=== PATIENT | male | born 1940 | race Caucasian/White ===

== ENCOUNTER 2018-03-16 07:16 | Outpatient (CLI) | payer OTHER | END 2018-03-16 07:20 | disposition home or self-care (01) | LOC: LAB 07:16 | DX: E11.69 Type 2 diabetes mellitus with other specified complication (principal); D50.8 Other iron deficiency anemias; N39.0 Urinary tract infection, site not specified; N40.1 Benign prostatic hyperplasia with lower urinary tract symptoms; Z12.11 Encounter for screening for malignant neoplasm of colon; R78.9 Finding of unspecified substance, not normally found in blood ==

== ENCOUNTER 2018-03-17 06:59 | Outpatient (CLI) | payer OTHER | END 2018-03-17 07:04 | disposition home or self-care (01) | LOC: LAB 06:59 | DX: E11.69 Type 2 diabetes mellitus with other specified complication (principal); D50.8 Other iron deficiency anemias; N39.0 Urinary tract infection, site not specified; N40.1 Benign prostatic hyperplasia with lower urinary tract symptoms; Z12.11 Encounter for screening for malignant neoplasm of colon; R78.89 Finding of other specified substances, not normally found in blood ==

== ENCOUNTER 2018-08-24 07:12 | Outpatient (CLI) | payer OTHER | END 2018-08-24 07:17 | disposition home or self-care (01) | LOC: LAB 07:12 | DX: E78.00 Pure hypercholesterolemia, unspecified (principal); E78.2 Mixed hyperlipidemia; E87.8 Other disorders of electrolyte and fluid balance, not elsewhere classified; E11.69 Type 2 diabetes mellitus with other specified complication ==

== ENCOUNTER 2018-11-04 08:06 | Outpatient (CLI) | payer OTHER | END 2018-11-04 08:10 | disposition home or self-care (01) | LOC: LAB 08:06 | DX: N40.0 Benign prostatic hyperplasia without lower urinary tract symptoms (principal) ==

== ENCOUNTER 2019-01-18 06:54 | Outpatient (CLI) | payer OTHER | END 2019-01-18 07:11 | disposition home or self-care (01) | LOC: LAB 06:54 | DX: E11.69 Type 2 diabetes mellitus with other specified complication (principal); E78.00 Pure hypercholesterolemia, unspecified; E78.2 Mixed hyperlipidemia; E87.8 Other disorders of electrolyte and fluid balance, not elsewhere classified; R74.0 Nonspecific elevation of levels of transaminase and lactic acid dehydrogenase [LDH]; D50.8 Other iron deficiency anemias; Z83.49 Family history of other endocrine, nutritional and metabolic diseases; N39.0 Urinary tract infection, site not specified; R97.8 Other abnormal tumor markers; E55.9 Vitamin D deficiency, unspecified; N40.1 Benign prostatic hyperplasia with lower urinary tract symptoms; R07.89 Other chest pain ==

== ENCOUNTER 2019-06-02 07:38 | Outpatient (CLI) | payer OTHER | END 2019-06-02 07:43 | disposition home or self-care (01) | LOC: LAB 07:38 | DX: E78.2 Mixed hyperlipidemia (principal); E87.8 Other disorders of electrolyte and fluid balance, not elsewhere classified; E78.00 Pure hypercholesterolemia, unspecified; B74 Filariasis ==

== ENCOUNTER → 2020-04-24 06:36 | Outpatient (CLI) | payer OTHER | END | disposition home or self-care (01) | LOC: LAB 06:36 | PROVIDERS: ATTEND Internal Medicine | DX: N40.1 Benign prostatic hyperplasia with lower urinary tract symptoms (principal); E11.69 Type 2 diabetes mellitus with other specified complication; E78.00 Pure hypercholesterolemia, unspecified; E78.2 Mixed hyperlipidemia; R74.0 Nonspecific elevation of levels of transaminase and lactic acid dehydrogenase [LDH]; E87.8 Other disorders of electrolyte and fluid balance, not elsewhere classified; D50.8 Other iron deficiency anemias; N39.0 Urinary tract infection, site not specified; E55.9 Vitamin D deficiency, unspecified; Z83.49 Family history of other endocrine, nutritional and metabolic diseases; R97.8 Other abnormal tumor markers; Z12.11 Encounter for screening for malignant neoplasm of colon ==

== ENCOUNTER 2020-04-25 06:21 | Outpatient (CLI) | payer OTHER | END 2020-04-25 07:19 | disposition home or self-care (01) | LOC: LAB 06:21 | PROVIDERS: ATTEND Internal Medicine | DX: E11.69 Type 2 diabetes mellitus with other specified complication (principal); E78.00 Pure hypercholesterolemia, unspecified; E78.2 Mixed hyperlipidemia; R74.0 Nonspecific elevation of levels of transaminase and lactic acid dehydrogenase [LDH]; E87.8 Other disorders of electrolyte and fluid balance, not elsewhere classified; D50.8 Other iron deficiency anemias; N39.0 Urinary tract infection, site not specified; E55.9 Vitamin D deficiency, unspecified; Z83.49 Family history of other endocrine, nutritional and metabolic diseases; R97.8 Other abnormal tumor markers; Z12.11 Encounter for screening for malignant neoplasm of colon; N40.1 Benign prostatic hyperplasia with lower urinary tract symptoms ==

== ENCOUNTER 2021-06-08 07:10 | Outpatient (CLI) | payer OTHER | END 2021-06-08 07:11 | disposition home or self-care (01) | LOC: LAB 07:10 | PROVIDERS: ATTEND Urology | DX: N40.0 Benign prostatic hyperplasia without lower urinary tract symptoms (principal) ==

== ENCOUNTER 2021-07-29 06:34 | Outpatient (CLI) | payer OTHER | END 2021-07-29 06:35 | disposition home or self-care (01) | LOC: LAB 06:34 | PROVIDERS: ATTEND Ophthalmology | DX: I10 Essential (primary) hypertension (principal); E11.39 Type 2 diabetes mellitus with other diabetic ophthalmic complication; I15.8 Other secondary hypertension; D68.32 Hemorrhagic disorder due to extrinsic circulating anticoagulants; D68.8 Other specified coagulation defects ==

== ENCOUNTER 2021-12-05 07:23 | Outpatient (CLI) | payer OTHER | END 2021-12-05 08:48 | disposition home or self-care (01) | LOC: LAB 07:23 | PROVIDERS: ATTEND Internal Medicine | DX: E11.69 Type 2 diabetes mellitus with other specified complication (principal); E78.2 Mixed hyperlipidemia; E87.8 Other disorders of electrolyte and fluid balance, not elsewhere classified; D50.8 Other iron deficiency anemias; N39.0 Urinary tract infection, site not specified; E55.9 Vitamin D deficiency, unspecified; E03.8 Other specified hypothyroidism; R97.8 Other abnormal tumor markers; Z12.11 Encounter for screening for malignant neoplasm of colon; N40.1 Benign prostatic hyperplasia with lower urinary tract symptoms; E78.00 Pure hypercholesterolemia, unspecified; R74.9 Abnormal serum enzyme level, unspecified ==

== ENCOUNTER → 2022-06-15 07:01 | Outpatient (CLI) | payer OTHER | END | disposition home or self-care (01) | LOC: LAB 07:01 | PROVIDERS: ATTEND Internal Medicine | DX: E11.69 Type 2 diabetes mellitus with other specified complication (principal); E11.21 Type 2 diabetes mellitus with diabetic nephropathy; E78.2 Mixed hyperlipidemia; E78.00 Pure hypercholesterolemia, unspecified; E87.8 Other disorders of electrolyte and fluid balance, not elsewhere classified; E03.8 Other specified hypothyroidism ==

== ENCOUNTER 2022-12-15 06:07 | Outpatient (CLI) | payer OTHER | END 2022-12-15 07:18 | disposition home or self-care (01) | LOC: LAB 06:07 | PROVIDERS: ATTEND Internal Medicine | DX: E11.69 Type 2 diabetes mellitus with other specified complication (principal); E78.2 Mixed hyperlipidemia; E78.00 Pure hypercholesterolemia, unspecified; E87.8 Other disorders of electrolyte and fluid balance, not elsewhere classified; R74.02 Elevation of levels of lactic acid dehydrogenase [LDH]; D50.8 Other iron deficiency anemias; N39.0 Urinary tract infection, site not specified; E55.9 Vitamin D deficiency, unspecified; E03.8 Other specified hypothyroidism; R97.8 Other abnormal tumor markers; N40.1 Benign prostatic hyperplasia with lower urinary tract symptoms; Z12.11 Encounter for screening for malignant neoplasm of colon ==

== ENCOUNTER 2023-12-17 07:45 | Outpatient (CLI) | payer OTHER ==
[2023-12-17 09:04] LABS: PH,URINE 6.5 (5.0-8.0); URINE APPEARANCE Clear; URINE BILIRRUBIN Negative (NEGATIVE); URINE BLOOD Trace; URINE COLOR Yellow; URINE GLUCOSE Negative (NEGATIVE); URINE LEUKOCYTE Negative; URINE NITRATE Negative; URINE UROBILINOGEN 0.2 E.U./dl
[2023-12-17 09:05] LABS: URINE EPITHELIAL CELLS 1.6 uL (0.0-38.8)
[2023-12-17 09:07] LABS: HEMATOCRIT 39.4 % (39.0-48.0); HEMOGLOBIN 12.9 g/dL (13-16.00); MEAN CELL VOLUME 83.6 fL (80.0-100.00); MEAN CORPUSCULAR HEMOGLOBIN 27.3 pg (27.00-32.0); MEAN CORPUSCULAR HGB CONC 32.7 g/dl (32.0-36.0); PLATELET COUNT 237 K/uL (150-450); RED BLOOD COUNT 4.71 M/uL (4.00-6.00); RED CELL DISTRIBUTION WIDTH 15.5 % (11.5-14.5)
[2023-12-17 09:28] LABS: URINE BACTERIA 3.7 uL (0.0-1933); URINE PROTEIN 300 (NEGATIVE)
[2023-12-17 10:14] LABS: ALBUMIN 3.4 gm/dL (3.4-5.0); BILIRUBIN TOTAL 0.36 mg/dL (0.3-1.2); BILIRUBIN,CONJUGATED 0.13 mg/dL (0.0-0.2); BILIRUBIN,UNCONJUGATED 0.23 mg/dL (0.0-0.6); CALCIUM 9.5 mg/dL (8.5-10.1); CHOL HDL RATIO 2.5 (0-5.0); CREATININE SERUM 2.78 mg/dL (0.70-1.30); GFR 22.04; POTASSIUM 3.73 mEq/L (3.5-5.1); PROSTATIC SPECIFIC ANTIGEN 2.67 NG/ML (0.010-4.00); TOTAL PROTEIN 7.4 gm/dL (6.4-8.2)
[2023-12-17 10:19] LABS: TSH 5.59 uIU/mL (0.358-3.74)
[2023-12-17 12:35] LABS: ob NEGATIVE (NEGATIVE)
== END 2023-12-17 07:54 | disposition home or self-care (01) ==
LOC: LAB 07:45
PROVIDERS: ATTEND Internal Medicine
DX: E11.69 Type 2 diabetes mellitus with other specified complication (principal); E78.2 Mixed hyperlipidemia; E78.00 Pure hypercholesterolemia, unspecified; E87.8 Other disorders of electrolyte and fluid balance, not elsewhere classified; K76.9 Liver disease, unspecified; D50.8 Other iron deficiency anemias; N39.0 Urinary tract infection, site not specified; E55.9 Vitamin D deficiency, unspecified; Z83.49 Family history of other endocrine, nutritional and metabolic diseases; R97.8 Other abnormal tumor markers; Z12.11 Encounter for screening for malignant neoplasm of colon; N40.1 Benign prostatic hyperplasia with lower urinary tract symptoms

== ENCOUNTER → 2024-08-14 06:09 | Outpatient (CLI) | payer OTHER ==
[2024-08-14 07:08] LABS: HEMATOCRIT 35.9 % (39.0-48.0); HEMOGLOBIN 11.3 g/dL (13-16.00); MEAN CELL VOLUME 84.4 fL (80.0-100.00); MEAN CORPUSCULAR HEMOGLOBIN 26.5 pg (27.00-32.0); MEAN CORPUSCULAR HGB CONC 31.4 g/dl (32.0-36.0); PLATELET COUNT 260 K/uL (150-450); RED BLOOD COUNT 4.25 M/uL (4.00-6.00); RED CELL DISTRIBUTION WIDTH 16.6 % (11.5-14.5)
[2024-08-14 07:24] LABS: URINE APPEARANCE Clear; URINE BILIRRUBIN Negative (NEGATIVE); URINE BLOOD Negative; URINE COLOR Yellow; URINE GLUCOSE Negative (NEGATIVE); URINE KETONE Negative (NEGATIVE); URINE LEUKOCYTE Negative; URINE NITRATE Negative; URINE UROBILINOGEN 0.2 E.U./dl
[2024-08-14 07:28] LABS: URINE BACTERIA 7.5 uL (0.0-1933); URINE EPITHELIAL CELLS 3.6 uL (0.0-38.8); URINE RBC 6.4 uL (0.0-20.8); URINE WBC 2.9 uL (0.0-23.2)
[2024-08-14 07:32] LABS: URINE CAST 0.15 uL (0.0-1.40); URINE PROTEIN >=1000 (NEGATIVE)
[2024-08-14 08:11] LABS: ALBUMIN 3.5 gm/dL (3.4-5.0); BILIRUBIN TOTAL 0.32 mg/dL (0.3-1.2); BILIRUBIN,CONJUGATED 0.1 mg/dL (0.0-0.2); BILIRUBIN,UNCONJUGATED 0.22 mg/dL (0.0-0.6); CALCIUM 8.4 mg/dL (8.5-10.1); CREATININE SERUM 2.91 mg/dL (0.70-1.30); GFR 20.85; PHOSPHOROUS 3.9 mg/dL (2.5-4.9); TOTAL PROTEIN 7.1 gm/dL (6.4-8.2)
== END | disposition home or self-care (01) ==
LOC: LAB 06:09
PROVIDERS: ATTEND Internal Medicine Nephrology
DX: N18.4 Chronic kidney disease, stage 4 (severe) (principal); R80.9 Proteinuria, unspecified; G46.3 Brain stem stroke syndrome; N40.0 Benign prostatic hyperplasia without lower urinary tract symptoms; N20.0 Calculus of kidney; E03.9 Hypothyroidism, unspecified; E78.00 Pure hypercholesterolemia, unspecified; E11.9 Type 2 diabetes mellitus without complications; I12.9 Hypertensive chronic kidney disease with stage 1 through stage 4 chronic kidney disease, or unspecified chronic kidney disease

== ENCOUNTER 2025-05-18 07:30 | Outpatient (CLI) | payer OTHER ==
[2025-05-18 09:54] LABS: BASO % 0.4 % (0.1-1.2); EOS # 0.16 (0.04-0.54); EOS % 1.6 % (0.7-7.0); LYMPH # 2.52 (1.18-3.74); LYMPH % 25.1 % (19.3-53.1); MEAN PLATELET VOLUME 13.60 fl (9.4-12.4); MONO # 0.94 (0.24-0.82); MONO % 9.4 % (4.7-12.5); NEUT # 6.30 (1.56-6.13); NEUT % 62.6 % (34.0-71.1); RED CELL DISTRIBUTION WIDTH 14.6 % (11.6-14.4)
[2025-05-18 10:16] LABS: URINE PROT QUANT 24HR 126.5 MG/DL
[2025-05-18 10:19] LABS: URINE PROT QUANT 24 HR 1265.0 MG/24HR (42-225)
[2025-05-18 10:36] LABS: ALT/SGPT 25.0 U/L (12-78); AST/SGOT 20.0 U/L (15-37); BILIRUBIN TOTAL 0.43 mg/dL (0.3-1.2); BILIRUBIN,CONJUGATED 0.22 mg/dL (0.0-0.2); BUN CREA RATIO 17.0 (7.0-25.0); CHOL HDL RATIO 1.7 (0-5.0); CREATININE SERUM 3.03 mg/dL (0.70-1.30); GFR 19.85; GLUCOSE FASTING 53.0 mg/dL (65-100); HDL 78.0 mg/dl (40-60); LDL 46.0 mg/dl (0-130); OSMOLALITY SERUM 298.0 MOSM/KG (275-295); PROSTATIC SPECIFIC ANTIGEN 1.77 NG/ML (0.010-4.00); VLDL 8.0 (0-39)
[2025-05-18 11:12] LABS: URINE BILIRRUBIN NEGATIVE (NEGATIVE); URINE BLOOD NEGATIVE; URINE GLUCOSE NEGATIVE (NEGATIVE); URINE KETONE NEGATIVE (NEGATIVE); URINE LEUKOCYTE NEGATIVE; URINE NITRATE NEGATIVE; URINE UROBILINOGEN 0.2 E.U./dl
[2025-05-18 11:39] LABS: URINE APPEARANCE CLEAR; URINE COLOR YELLOW; URINE PROTEIN 100 (NEGATIVE)
[2025-05-18 11:40] LABS: URINE BACTERIA SOME; URINE CRYSTALS NEGATIVE /HPF; URINE EPITHELIAL CELLS 0-4 /HPF; URINE MUCUS NEGATIVE; URINE RBC 0-3 /HPF; URINE WBC 0-2 /hpf
== END 2025-05-18 07:41 | disposition home or self-care (01) ==
LOC: LAB 07:30
PROVIDERS: ATTEND Internal Medicine Nephrology
DX: N28.1 Cyst of kidney, acquired (principal); E78.5 Hyperlipidemia, unspecified; N18.4 Chronic kidney disease, stage 4 (severe); R80.9 Proteinuria, unspecified; G46.3 Brain stem stroke syndrome; I12.9 Hypertensive chronic kidney disease with stage 1 through stage 4 chronic kidney disease, or unspecified chronic kidney disease; E03.9 Hypothyroidism, unspecified; E11.9 Type 2 diabetes mellitus without complications; E55.9 Vitamin D deficiency, unspecified; R74.01 Elevation of levels of liver transaminase levels